=== PATIENT | female | born 1955 | race Two or more races ===

== ENCOUNTER 2017-02-01 07:20 | Day surgery (SDC) | payer OTHER ==
[2017-01-29 10:43] VITALS: BMI 24.7
[2017-02-01] MEDS ORDERED: MIDAZOLAM HCL 2 MG/2 ML SINGLE DOSE VIAL ONE (08:58)
[2017-02-01] MEDS ORDERED: LEVOFLOXACIN 500 MG PREMIX BAG IVPB ONE (09:00)
[2017-02-01] MEDS ORDERED: LEVOFLOXACIN 500 MG IVPB 100 ML IVPB ONE (09:00)
[2017-02-01] MEDS ORDERED: oxyCODONE HCL 5 MG TABLET PO PRN (09:39)
[2017-02-01] MEDS ORDERED: ONDANSETRON 4 MG/2 ML VIAL IVPUSH PRN (09:39)
[2017-02-01] MEDS ORDERED: LACTATED RINGERS SOLUTION 1,000 ML IV SCH (09:45)
[2017-02-01] MEDS ORDERED: ONDANSETRON 4 MG/2 ML VIAL IVPUSH ONE (10:05)
[2017-02-01] MEDS ORDERED: GLYCOPYRROLATE 0.2 MG/1 ML VIAL ONE (10:13)
[2017-02-01] MEDS ORDERED: DEXAMETHASONE SOD PHOSPHATE 4 MG/1 ML VIAL ONE (10:18)
[2017-02-01] MEDS ORDERED: GLYCOPYRROLATE 0.2 MG/1 ML VIAL IVPB ONE (10:20)
[2017-02-01] MEDS ORDERED: DEXAMETHASONE SOD PHOSPHATE 4 MG/1 ML VIAL IVPB ONE (10:25)
[2017-02-01] MEDS ORDERED: GLYCOPYRROLATE 0.2 MG/1 ML VIAL IVPB PRN (10:55)
[2017-02-01 11:08] VITALS: TEMP 97.5
--- NOTE | 2017-02-01 11:12 | OP ---
DATE OF OPERATION: 02/01/2017 PREOPERATIVE DIAGNOSIS: Right renal stone. POSTOPERATIVE DIAGNOSIS: Right renal stone. PROCEDURE: Right extracorporeal shock-wave lithotripsy. ATTENDING: Kindra Boland MD ANESTHESIA: Fractional. DESCRIPTION OF PROCEDURE: The patient was brought in the operating room and placed in supine position on the operating room table. Ultrasonography and fluoroscopy were performed. A 9-cm stone was identified in the right lower pole. At this point, anesthesia was administered. Levaquin was given preoperatively for surgical prophylaxis. With the patient under anesthesia, 3000 impulses at 18-20 J of power was administered to the stone. Excellent fragmentation was noted was noted. No complications were noted. DISPOSITION: To the recovery room. KINDRA BOLAND M.D. [id number]
[2017-02-01] MEDS ORDERED: DEXAMETHASONE SOD PHOSPHATE 4 MG/1 ML VIAL IVPUSH ONE (11:29)
[2017-02-01 12:57] VITALS: BP 143/77; PULSE 51
--- NOTE | 2017-02-01 17:08 | OP ---
Operative Note - Note: Operative Date: 02/01/17 Pre-Operative Diagnosis: right renal stone Operation: right eswl Post-Operative Diagnosis: Same as Pre-op Surgeon: George Tineo Anesthesia: Fractional
--- NOTE | 2017-02-02 09:26 | OP ---
DATE OF OPERATION: 02/01/2017 PREOPERATIVE DIAGNOSIS: Right renal stone. POSTOPERATIVE DIAGNOSIS: Right renal stone. PROCEDURE: Right extracorporeal shock wave lithotripsy. ATTENDING: Kidnra Boland MD ANESTHESIA: Fractional. DESCRIPTION OF OPERATION: The patient was brought in the operating room and placed in supine position on the operating room table. Ultrasonography and fluoroscopy were performed. A 9-mm right lower pole stone was identified. The patient was then given fractional anesthesia and Levaquin for preoperative prophylaxis. Extracorporeal shock wave lithotripsy was then started with 3000 impulses at 18-20 joules of power administered to the stone. Excellent fragmentation was noted under real-time ultrasonography and fluoroscopy. No complications were noted. The patient tolerated the procedure very well. KINDRA BOLAND M.D. [id number]
== END 2017-02-01 13:00 | disposition home or self-care (01) ==
LOC: JASU-SURG 07:20
PROVIDERS: ATTEND Urology
PROC: 0TF3XZZ Fragmentation in Right Kidney Pelvis, External Approach (ICD-10-PCS; principal; 2017-02-01 08:45)
DX: N20.0 Calculus of kidney (principal)
CPT/HCPCS: 94760